=== PATIENT | female | born 1950 | race Caucasian/White ===

== ENCOUNTER → 2018-07-08 | Outpatient (CLI) | payer OTHER ==
[~2018-07-08] MED LIST: CYCL10 PO; GABA100 PO
[2018-07-09 14:07] LABS: HPV 16 Negative (Negative); HPV 18 Negative (Negative); HPV OTHER HR TYPES Negative (Negative)
== END ==
LOC: LAB 12:28 → LAB SHORT 12:28
PROVIDERS: Nurse Practitioner Women's Health
DX: Z12.4 Encounter for screening for malignant neoplasm of cervix (principal); Z91.89 Other specified personal risk factors, not elsewhere classified
CPT/HCPCS: 87624; G0123

== ENCOUNTER 2021-07-17 08:58 | Day surgery (SDC) | payer OTHER ==
[~2021-07-17] VITALS: Ht 160 cm; Wt 51.7 kg
[2021-07-17] MEDS ORDERED: LEVSOD150 (09:11)
== END 2021-07-17 11:27 | disposition home or self-care (01) ==
LOC: ORSCSDS 08:58
PROVIDERS: Student in an Organized Health Care Education/Training Program
PROC: 0DBH8ZX Excision of Cecum, Via Natural or Artificial Opening Endoscopic, Diagnostic (ICD-10-PCS; principal; 2021-07-17 10:15)
PROC: 0DBK8ZX Excision of Ascending Colon, Via Natural or Artificial Opening Endoscopic, Diagnostic (ICD-10-PCS; principal; 2021-07-17 10:15)
PROC: 0DBL8ZX Excision of Transverse Colon, Via Natural or Artificial Opening Endoscopic, Diagnostic (ICD-10-PCS; principal; 2021-07-17 10:15)
PROC: 0DBM8ZX Excision of Descending Colon, Via Natural or Artificial Opening Endoscopic, Diagnostic (ICD-10-PCS; principal; 2021-07-17 10:15)
DX: Z12.11 Encounter for screening for malignant neoplasm of colon (principal); D12.0 Benign neoplasm of cecum; D12.2 Benign neoplasm of ascending colon; D12.4 Benign neoplasm of descending colon; E03.9 Hypothyroidism, unspecified; Z79.899 Other long term (current) drug therapy
CPT/HCPCS: 88305; J2704; J7120

== ENCOUNTER → 2024-03-08 | Outpatient (CLI) | payer OTHER ==
[~2024-03-08] MED LIST changes: +LEVSOD150
[2024-03-08 21:13] LABS: Free Thyroxine 1.1 ng/dL (0.70-1.60)
[2024-03-08 21:15] LABS: Thyroid Stimulating Hormone 3.64 uIU/mL (0.360-4.800); Triiodothyronine, Free 2.67 pg/mL (2.18-3.98)
[2024-03-10 17:32] LABS: THYROID PEROXIDASE (TPO) AB 402.4 IU/mL (0.0-9.0)
== END ==
LOC: LAB SHORT 15:25 → LAB 15:25
PROVIDERS: Family Medicine
DX: E06.3 Autoimmune thyroiditis (principal)
CPT/HCPCS: 84439; 84443; 84481; 86376